=== PATIENT | male | born 1960 | race Caucasian/White ===

== ENCOUNTER 2016-10-14 08:24 | Day surgery (SDC) | payer OTHER ==
[~2016-10-14] VITALS: Ht 182.9 cm; Wt 108.9 kg
[~2016-10-14 08:24] MED LIST: 0.9% Sodium Chloride 1,000 ML IV SCH; CITA40TA13 PO; IBUP200C11 PO; Sodium Chloride LOK Flush 10 mL Syringe IV PRN; fentaNYL-PF 50 mCg/mL 2 mL Inj IVPUSH PRN
[2016-10-14 09:08] VITALS: BP 135/100; PULSE 94; RESP 15; O2SAT 95
[2016-10-14 09:55] VITALS: BP 137/90; PULSE 104; RESP 16; O2SAT 91
[2016-10-14 10:00] VITALS: BP 122/85; PULSE 95; RESP 16; O2SAT 91
--- NOTE | 2016-10-14 10:02 | ENDO ---
[address] [address] ENDOSCOPY PROCEDURE PATIENT: NILTON BEY : 1960 MR#: [id number] ADMIT: 10/14/2016 JOB ID: [id number] DATE OF SERVICE: 10/14/2016 PREOPERATIVE DIAGNOSIS: Colorectal cancer screening. POSTOPERATIVE DIAGNOSIS(ES): 1. A 2-3 mm transverse colon polyp. 2. A 2-3 mm hepatic flexure polyp. OPERATION: 1. Colonoscopy into terminal ileum. 2. Cold forceps polypectomy x2. SURGEON: Shon Mercedes MD. INDICATIONS: A 56-year-old man who says he has not had a colonoscopy for "years." He was referred by Dr. Luke Reinoso for a colonoscopy. FINDINGS: He had a fair prep. The scope was advanced into the terminal ileum. It was withdrawn over 7 minutes and 35 seconds. Two 2 to 3 mm polyps were identified, one at the hepatic flexure and one in the transverse colon. They were both grossly completely removed. No other polyps were identified. Retroflexed views of the rectum were normal. There is no evidence of diverticulosis, inflammatory, or vascular lesions. DESCRIPTION OF PROCEDURE: The procedure and sedation plan was discussed with the patient and nursing staff, and a procedural time-out was held. He received 6 mg of Versed and 150 mcg of fentanyl. Digital rectal exam was performed. The Olympus PCF-H180-AL video colonoscope was passed transanally, advanced to the terminal ileum withdrawn with results and 2 cold forceps polypectomies as stated above. There was no bleeding. No apparent complications. The patient tolerated the procedure well. RECOMMENDATIONS: Repeat colonoscopy in 5 years.
[2016-10-14 10:10] VITALS: BP 124/82; PULSE 100; RESP 16; O2SAT 90
[2016-10-14 10:20] VITALS: BP 118/94; PULSE 104; RESP 16; O2SAT 92
--- NOTE | 2016-10-15 12:00 | PATH ---
SURGICAL PATHOLOGY Attending Physician:Sue Yost CASE STATUS: Signed Out PATIENT NAME: NILTON BEY PID: [id number] : 1960 DATE COLLECTED:10/14/2016 15:31 SPECIMEN: 1: Colon, Biopsy 2: Colon, Biopsy CLINICAL HISTORY: 1. HEPATIC FLEXURE POLYP 2. 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 ICD10 D12.3 GROSS DESCRIPTION: The specimen is received in two formalin filled containers labeled with the patient's name. 1). The specimen is sublabeled "hepatic flexure polyp" and consists of 2 portions of tissue which aggregate to 0.2 x 0.2 x 0.2 CM. The specimen is entirely submitted in cassette 1A. 2). The specimen is sublabeled "transverse polyp" and consists of 3 portions of tissue which aggregate to 0.3 x 0.3 x 0.2 CM. The specimen is entirely submitted in cassette 2A. 10/14/2016 [facility] MICRO DESCRIPTION: See diagnosis. ICD-9 CODES: CPT CODES: 1: 28694 2: 82556 Electronically Signed Out Rusty Swan MD [facility] [address], [place] [address] Technical component performed at [facility], [facility] [address], [place], [address]
== END 2016-10-14 23:59 | disposition home or self-care (01) ==
LOC: END 08:24
PROVIDERS: ATTEND Surgery
DX: Z12.11 Encounter for screening for malignant neoplasm of colon (principal); D12.3 Benign neoplasm of transverse colon; F32.9 Major depressive disorder, single episode, unspecified; M54.5 Low back pain; E66.8 Other obesity; F17.290 Nicotine dependence, other tobacco product, uncomplicated; Z68.32 Body mass index [BMI] 32.0-32.9, adult
CPT/HCPCS: 45380; 88305; 99152; 99153; J2250; J3010; J7030